=== PATIENT | male | born 1975 | race Caucasian/White ===

== ENCOUNTER 2016-11-14 05:59 | Day surgery (SDC) | payer MEDICARE, OTHER ==
[~2016-11-14] VITALS: Ht 175.3 cm; Wt 90.9 kg
[2016-11-14] VITALS (15 sets, daily range): BP systolic 112–156; BP diastolic 66–93; PULSE 83–118; RESP 12–25; O2SAT 93–99
[2016-11-14] MEDS: Lactated Ringer's 1,000 ML IV SCH ×3 (05:00→07:54)
[~2016-11-14 05:59] MED LIST: AMT25T PO; CINA90TA PO; CITA40TA13 PO; EMLA CREAM TP; FLUT9.9S NS; HUMALOG SQ; LORA2TAB PO; METH750T3 PO; ONDA4TAB6 PO; POLY17PO6 PO; QUET25TA73 PO; SEVE800T7 PO
[2016-11-14] MEDS ORDERED: Neostigmine 1 mg/mL 5 mL Inj ONE (06:00)
[2016-11-14] MEDS ORDERED: 0.9% Sodium Chloride 500 mL Bag ONE (06:00)
[2016-11-14] MEDS ORDERED: fentaNYL-PF 50 mCg/mL 2 mL Inj ONE (06:00)
[2016-11-14] MEDS ORDERED: MetoCLOpramide 5 mg/mL 2 mL Inj ONE (06:00)
[2016-11-14] MEDS ORDERED: Propofol 10,000 mCg/mL 20 mL Inj ONE (06:00)
[2016-11-14] MEDS ORDERED: Glycopyrrolate 0.2 mg/mL 5 mL Inj ONE (06:00)
[2016-11-14] MEDS ORDERED: EPHEDrine/NS 5 mg/mL 5 mL Syringe ONE (06:00)
[2016-11-14] MEDS ORDERED: Phenylephrine/NS 100 mCg/mL 10 mL Syringe IVPUSH ONE (06:00)
[2016-11-14] MEDS ORDERED: Phenylephrine 10,000 mCg/mL Inj ONE (06:00)
[2016-11-14] MEDS ORDERED: Remifentanil 1 mg/3 mL Inj ONE (06:00)
[2016-11-14] MEDS ORDERED: Cisatracurium 2,000 mCg/mL 10 mL Inj ONE (06:00)
[2016-11-14] MEDS ORDERED: 0.9% Sodium Chloride 500 ML IV ONE ×2 (07:54→09:13)
[2016-11-14] MEDS ORDERED: Bupivacaine-MPF 0.5% W/EPI 30 mL Inj INFILTRATE ONE (08:40)
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
[2016-11-14] MEDS ORDERED: Calcium GLUCO 10% (mEq) Inj 9.3 MEQ in Dextrose 5% 100 ML IV ONE (11:00)
[2016-11-14] MEDS ORDERED: Ondansetron 2 mg/mL 2 mL Inj IVPUSH PRN ×2 (11:00→11:05)
[2016-11-14] MEDS ORDERED: MetoCLOpramide 5 mg/mL 2 mL Inj IVPUSH PRN (11:00)
[2016-11-14] MEDS ORDERED: HYDROcodone-APAP 5-325 mg Tablet PO PRN (11:00)
[2016-11-14] MEDS ORDERED: 0.9% Sodium Chloride 250 ML IV PRN (11:03)
[2016-11-14] MEDS ORDERED: hydrALAZINE 20 mg/mL Inj IVPUSH PRN (11:05)
[2016-11-14] MEDS ORDERED: fentaNYL-PF 50 mCg/mL 2 mL Inj IVPUSH PRN (11:05)
[2016-11-14] MEDS ORDERED: Phenylephrine 10,000 mCg/mL Inj IVPUSH PRN (11:05)
[2016-11-14] MEDS ORDERED: EPHEDrine Sulfate 50 mg/mL Inj IVPUSH PRN (11:05)
[2016-11-14] MEDS ORDERED: Atropine 0.4 mg/mL Inj IVPUSH PRN (11:05)
--- NOTE | 2016-11-14 11:34 | OP ---
[address] [address] OPERATIVE REPORT PATIENT: ANNALISA TEMPLETON : 1975 MR#: [id number] ADMIT: 11/14/2016 JOB ID: [id number] DATE OF SURGERY: 11/14/2016 ANESTHESIA: General. PREOPERATIVE DIAGNOSIS(ES): Poorly controlled secondary hyperparathyroidism. POSTOPERATIVE DIAGNOSIS(ES): Poorly controlled secondary hyperparathyroidism. OPERATIVE PROCEDURE: Four gland parathyroidectomy with reimplantation. SURGEON: Dr. Reed Barone. RN FACULTY: Og Hopson MD (the energy assistant was required for the safe and timely completion of the case) as well as DELROY Shen and Di Cooney PA-C. COMPLICATIONS: None. ESTIMATED BLOOD LOSS: Minimal. CONDITION: Satisfactory. SPECIMENS: 1. Right inferior parathyroid adenoma. 2. Right superior parathyroid adenoma. 3. Left inferior parathyroid adenoma. 4. Left superior parathyroid adenoma. FINDINGS: Four enlarged parathyroid adenomas were identified. The right inferior was approximately 1650 mg in size. 50 mg of this was reimplanted in the left sternocleidomastoid. The right superior parathyroid was approximately 900 mg. The left inferior parathyroid was approximately 910 mg. The left superior parathyroid was approximately 1000 mg. INDICATIONS: The patient is a 41-year-old man with a history of type 1 diabetes and end-stage renal disease on hemodialysis who has a struggle with secondary hyperparathyroidism. He has had PTH levels over 1000 in spite of maximal medical therapy. He was referred for four gland exploration. OPERATIVE TECHNIQUE: The patient was taken into the operating room and placed in the supine position. General anesthesia was administered. The neck was prepped and draped in a standard surgical fashion. A procedural pause was performed. A 5 cm cervical incision was then made after injecting local anesthetic, and dissection carried down through skin and subcutaneous tissue. The platysma was transected and superior and inferior subplatysmal flaps were then raised. The midline fascia was then incised and the right strap muscles was sequentially elevated. Dissection was begun and a right inferior parathyroid adenoma was easily identified. This was carefully dissected free. The right recurrent laryngeal nerve was easily identified immediately deep to this. Deep to the nerve, a right superior adenoma was easily identified, and again, carefully dissected free using combination of blunt dissection and bipolar electrocautery taking care to stay well away from the nerve. After removal of the specimens, the attention was turned to the left side. The left strap muscles were sequentially elevated. Dissection was begun and again a left inferior adenoma was easily identified and carefully dissected free. I looked for the nerve but it was not easily identified. The left inferior pole vessels were taken using energy device and then upon elevating the left inferior lobe, there was a left superior adenoma that was again easily identified and then circumferentially dissected free. The measurements were as above. Intraoperative PTH had been checked immediately prior to removing the first adenoma. After removing the third adenoma, it had dropped down to just over 100. Frozen specimen was also obtained and confirmed that all the adenomas indeed consist of parathyroid tissue. I took off the approximately 50 mg of the right inferior adenoma and mashed this and I created a slurry with some saline. The strap muscles were then reapproximated using running 3-0 Vicryl. I dissected out the left sternocleidomastoid, created a little pocket and put the slurry into this. This was closed with a 3-0 Prolene suture. I also left a metallic clip there for easy radiographic identification. The platysma was then reapproximated with interrupted 3-0 Vicryl. Skin was closed using 4-0 Monocryl. Dermabond was applied. The entire procedure was well tolerated without apparent complication. LORIE
--- NOTE | 2016-11-14 12:00 | PCM.ANEP1 ---
Post Anesthesia Phase 1 PACU Phase 1 Assessment Vital Signs Vital Signs Date Time Temp Pulse Resp B/P Pulse Ox O2 Delivery O2 Flow Rate FiO2 11/14/16 11:45 89 17 112/68 96 Nasal Cannula 2 11/14/16 11:30 90 14 115/67 95 Nasal Cannula 2 11/14/16 11:20 98 22 122/66 93 Room Air 11/14/16 11:10 100 15 122/75 94 Room Air 11/14/16 11:05 110 20 156/93 97 Room Air 11/14/16 11:00 99 25 137/76 99 Simple Mask 8 11/14/16 10:55 36.2 118 13 145/76 99 Simple Mask 8 11/14/16 06:31 36.2 104 12 121/76 93 Room Air Anesthetic Administered: GA Level of Alertness: Awake, talking [place]'s with Equal Strength: Yes Pain: No Nausea or Vomiting: No Oxygen Delivery: Nasal Cannula Lungs: Normal Air Movement Dermatome Level: Full Sensation Devante Davenport MD Nov 14, 2016 12:00
--- NOTE | 2016-11-14 12:01 | PCM.ANEP2 ---
Post Anesthesia Evaluation ASA/CMS Post Anesthesia VS in Patient's Normal Range?: Yes Resp Stable; Airway Patent?: Yes CV Function & Hydration Stable: Yes Mental Status Recovered?: Yes Pain control Satisfactory?: Yes N/V Control Satisfactory?: Yes Devante Davenport MD Nov 14, 2016 12:01
--- NOTE | 2016-11-14 13:35 | NUR ---
Post Op Pt arrived to [facility] rm 1024 at approx 1330. Rec'd report from JENNIFER Pierson in PACU. Pt arrived via gurney and was able to scoot himself over to the hospital bed. Incision well approx. Pt oriented to room and call light. Reports no nausea and pain 04/07. Insulin pump running at personal settings. Addendum: 11/14/16 at 1428 by IJEOMA CLIFFORD RN Pt placed on [place] alarm due to Post op status, pt expressed being upset about that "I know how to disassemble those." Advised pt it was policy and that post ops are higher falls risks. [place] on and call light w/in reach Addendum: 11/14/16 at 1704 by IJEOMA CLIFFORD RN Pt questioned this JENNIFER again about alarm, States I will use my call light if I feel I need help, As I was speaking he took [place] alarm out from under his sheets.
[2016-11-14] MEDS ORDERED: oxyCODONE-Acetamin 5-325 mg Tablet PO PRN ×2 (14:20→18:16)
[2016-11-14] MEDS: Insulin Human REGular 300 Unit/3 mL Inj SUBQ SCH ×2 (14:30→20:30)
[2016-11-14] MEDS ORDERED: Calcium Carbonate 1250 mg/5 mL Suspension PO SCH ×2 (17:30→21:00)
[2016-11-14] MEDS ORDERED: Polyethylene Glycol (PEG) 17 Gm Powder PO PRN (17:55)
[2016-11-14] MEDS ORDERED: INSULIN LISPRO SQ SCH (17:55)
--- NOTE | 2016-11-14 18:34 | NUR ---
Pt observed taking home meds Entered room at approx 1825 to administer Percocet. Pt had lunch bag full of medication bottles and was taking some. Asked pt what he was taking, stated his Renvela. Advised pt of hospital policy, pt states that he would let us know what he was taking. Pt advised pharmacist would be in to talk with him. Spoke to pharmacist, currently she is in talking with him. dry dip worker aware. Addendum: 11/14/16 at 1905 by IJEOMA CLIFFORD RN Pharmacist arrived to discuss w/ patient hospital policy. Pt wanted med rec done to make sure we had everything correct in the system. Pharmacist discussed conversation w/ this RN. I entered room to complete med rec, we had up to date version, started to fill out security bag for pt's medication and he refused to have meds placed in pharmacy safe. Advised pt of policy again, orientee RN also explained policy. Pt states that he will leave before he lets us put his meds in the safe as he doesnt trust that he will get them when he needs them, again explained policy and liability, pt wishes to speak to the doctor. Paged Surgeon. Meds currently in patient's room.
--- NOTE | 2016-11-14 21:15 | PCM.DISURG ---
Surgical Discharge Instruction Date of Service Nov 14, 2016 Dates of Hospitalization Date of Hospital Admission Providers Admitting Physician: Primary Care Physician: Ayush Reis MD Attending Physician: Reed Barone MD Discharge Diagnosis Discharge Diagnosis S/P Parathyroidectomy Diet Discharge Diet: Diabetic, Renal Diet Activity Discharge Activity-General: No restrictions, No driving while taking narcotic Dressing and Incisional Care Hygiene: May shower Follow Up Plan Follow Up Plan Call my clinic first thing tomorrow morning to arrange for a calcium level check Call your provider for: Other (numbness or tingling around the mouth, muscle cramps or spasms) Additional Information Additional Information If any muscle cramps etc. take 4 tums (500mg calcium carbonate) and go to the Emergency room Reed Barone MD Nov 14, 2016 21:15
[2016-11-14] MEDS ORDERED: CALC500T53 PO (21:17)
--- NOTE | 2016-11-14 21:29 | NUR ---
Discharge Pt. originally wanted to leave AMA. Abisai MD paged. Abisai MD advised pt. to wait for calcium levels to come back before leaving. Calcium levels came back. Pt. asked to leave. filled out discharge paperwork. Discharge instructions were given to pt. Pt. left with all belongings at 2125. Pt.'s IV was intact and patent.
--- NOTE | 2016-11-15 00:04 | DIS ---
[address] [address] DISCHARGE SUMMARY PATIENT: ANNALISA TEMPLETON : 1975 MR#: [id number] ADMIT: 11/14/2016 JOB ID: [id number] DIS: 11/14/2016 ADMISSION DIAGNOSIS: Secondary hyperparathyroidism. DISCHARGE DIAGNOSIS: Secondary hyperparathyroidism. OPERATIVE PROCEDURE: Four gland parathyroidectomy with reimplantation. HISTORY: The patient is a 41-year-old man with type 1 diabetes and end-stage renal disease on hemodialysis. He had developed secondary hyperparathyroidism refractory to maximum medical therapy; and therefore, was referred for four gland parathyroidectomy with reimplantation. On date of admission he was taken to the operating room and the above-mentioned procedure performed without complication. His preoperative calcium level was 8.8, his preoperative PTH was 593; in the PACU his calcium level was 8.4 and his PTH was 55. He received a single dose of IV calcium and the plan was to start oral calcium. Calcium levels were rechecked in the afternoon and were in the target range of 8 to 9 mg/dL. I was contacted by the conservation agent surgeon that evening as the patient was wanting to go home. Attempts at convincing him to stay were proving futile; and therefore, I was asked to give him a call. I discussed with him the indications for staying, primarily to make sure that his calcium levels were okay. Because he was going to leave anyway, I agreed to recheck his calcium level and then let him go home if it was within the target range of 8 to 9 mg/dL. The recheck was 8.3. He was given instructions regarding the need to take calcium carbonate 1 g four times a day. He was also given explicit instructions regarding warning signs and symptoms of hypocalcemia, specifically perioral numbness and tingling, muscle cramps and spasms. He was instructed that if he should experience any of those symptoms he should immediately take 2 g of calcium carbonate and then go to the emergency department. He understood that I was less than enthusiastic about him going home, but I did feel it was safe given that his calciums had remained relatively stable, and I preferred to have him leave with appropriate instructions and a plan for follow up rather than just leave AMA. FOLLOWUP PLANS: The patient was given instructions to call my clinic first thing in the morning so we can recheck his calcium level. DISCHARGE MEDICATIONS: Patient was sent home with no new discharge medications. He was instructed to stop Sensipar. He was also instructed to take Tums (calcium carbonate 500 mg) two tabs four times a day. He was instructed to take a dose prior to bed tonight. He will receive prescriptions for analgesia and Vit D tomorrow in my clinic. LORIE
[2016-11-15] MEDS ORDERED: Fluticasone 0.05% 15 Spray/2 Gm 16 Gm Nasal Spray NASAL SCH (08:30)
== END 2016-11-14 21:50 | disposition home or self-care (01) ==
LOC: SAS 05:59 → OSC 13:12 → SAS 21:50
PROVIDERS: ATTEND General Practice
DX: N25.81 Secondary hyperparathyroidism of renal origin (principal); E10.21 Type 1 diabetes mellitus with diabetic nephropathy; N18.6 End stage renal disease; M79.7 Fibromyalgia; G47.33 Obstructive sleep apnea (adult) (pediatric); Z99.2 Dependence on renal dialysis; Z79.4 Long term (current) use of insulin
CPT/HCPCS: 36415; 60500; 82310; 83036; 83970; 84132; J1815; J2370; J2405; J2710; J2765; J3010; J7030; J7040; J7120

== ENCOUNTER 2017-04-24 16:18 | Emergency (ER) | payer MEDICARE, OTHER ==
[~2017-04-24] VITALS: Ht 175.3 cm; Wt 91.5 kg
[~2017-04-24 16:18] MED LIST changes: +CALC500T53 PO; -CINA90TA PO
[2017-04-24 16:45] VITALS: BP 139/88; PULSE 82; RESP 16; O2SAT 99
--- NOTE | 2017-04-24 19:17 | ED.REPORT ---
HPI-Dental/Mouth Prob Date of Service Apr 24, 2017 ED Provider: Rick Lockhart MD History of Present Illness: I Nursing Notes Stated Complaint: SEVERE TOOTHACHE Chief Complaint: Dental Nursing Notes Reviewed: Yes ([employer], Passenger Baggage Xpresssnot reconciled) Allergies: Coded Allergies: ibuprofen (Verified Adverse Reaction, Severe, swelling, 11/12/16) Scheduled ([Emla Cream]) 1 APPLIC TP BEFORE DIALYSIS ([Humalog]) 70 UNITS SQ VIA INSULIN PUMP Amitriptyline (Amitriptyline) 25 Mg Tab 25 MG PO HS Calcium Carbonate (Calcium Carbonate) 200 Mg Tab.chew 1,000 MG PO QID Citalopram (Citalopram) 40 Mg Tablet 40 MG PO DAILY Fluticasone Propionate (Flonase Allergy Relief) 50 Mcg/Actuation [place].susp 9.9 ML NS DAILY Quetiapine Fumarate (Quetiapine Fumarate) 25 Mg Tablet 25 MG PO HS Sevelamer Carbonate (Renvela) 800 Mg Tablet 4,000 MG PO TIDWM TAKES 3 800MG (2400MG) TID AC; TAKES 2 800MG (1600MG) W/ SNACKS Scheduled PRN Lorazepam (Lorazepam) 2 Mg Tablet 8 MG PO 3x weekly PRN PRN For Insomnia USES PRIOR TO DIALYSIS Methocarbamol (Methocarbamol) 750 Mg Tablet 750 MG PO TID PRN PRN For Spasm Ondansetron (Zofran) 4 Mg Tablet 4-8 MG PO Q8H PRN PRN For Nausea Polyethylene Glycol 3350 (Miralax) 17 Gm Powd.pack 17 GM PO TID PRN PRN PRN General Time Seen by MD: 19:08 Chief Complaint Other Past Medical History Past Medical History Chronic renal failure on hemodialysis Secondary hyperparathyroidism Diabetes, type I on an insulin pump Hypertension History of obstructive sleep apnea on CPAP History of kidney stones History of GERD History of fibromyalgia History of anxiety Past Surgical History parathyroidectomy with reimplantation October 2016 Umbilical hernia repair Tooth extraction Cataracts Right ankle repair Left arm AV fistula Appendectomy Reports: Cataract surgery Smoking History Former Smoker Social History Drug Use: Denies drug use Physical Exam Initial Vital Signs Vital Signs (First) Date Time Temp Pulse Resp B/P Pulse Ox O2 Delivery O2 Flow Rate FiO2 04/24/17 16:45 37.0 82 16 139/88 99 Initial VS: Reviewed, Vital signs normal Re-Eval/Medical Decision Source of Hx: Old records Discharge & Departure Referrals: Ayush Reis MD (PCP) Rick Lockhart MD Apr 24, 2017 19:16
== END 2017-04-24 19:33 | disposition left against medical advice (07) ==
LOC: SED 16:18
DX: K08.89 Other specified disorders of teeth and supporting structures (principal); E11.9 Type 2 diabetes mellitus without complications; I12.9 Hypertensive chronic kidney disease with stage 1 through stage 4 chronic kidney disease, or unspecified chronic kidney disease; N18.9 Chronic kidney disease, unspecified; Z99.2 Dependence on renal dialysis; Z90.89 Acquired absence of other organs; Z87.891 Personal history of nicotine dependence

== ENCOUNTER 2017-05-24 23:55 | Emergency (ER) | payer MEDICARE, OTHER ==
[~2017-05-24] VITALS: Ht 175.3 cm; Wt 95.1 kg
[2017-05-25 00:02] VITALS: BP 147/92; PULSE 82; RESP 16; O2SAT 99
--- NOTE | 2017-05-25 00:15 | ED.REPORT ---
HPI-Extremity Problem Upper Date of Service May 25, 2017 ED Provider: Alberto Santiago DO Pt is a 42 y/o male with a history of DM and HTN who presents to the ED c/o a laceration on his L thumb onset this evening. He states he was cut by a new chisel. He denies numbness/tingling, nausea, vomiting, diarrhea, SOB, weakness, cough, headache, or wrist pain. Nursing Notes Stated Complaint: STITCHES- LACERATION ON THUMB Chief Complaint: Laceration Nursing Notes Reviewed: Yes Allergies: Coded Allergies: ibuprofen (Verified Adverse Reaction, Severe, swelling, 11/12/16) Scheduled ([Emla Cream]) 1 APPLIC TP BEFORE DIALYSIS ([Humalog]) 70 UNITS SQ VIA INSULIN PUMP Amitriptyline (Amitriptyline) 25 Mg Tab 25 MG PO HS Calcium Carbonate (Calcium Carbonate) 200 Mg Tab.chew 1,000 MG PO QID Citalopram (Citalopram) 40 Mg Tablet 40 MG PO DAILY Fluticasone Propionate (Flonase Allergy Relief) 50 Mcg/Actuation [place].susp 9.9 ML NS DAILY Quetiapine Fumarate (Quetiapine Fumarate) 25 Mg Tablet 25 MG PO HS Sevelamer Carbonate (Renvela) 800 Mg Tablet 4,000 MG PO TIDWM TAKES 3 800MG (2400MG) TID AC; TAKES 2 800MG (1600MG) W/ SNACKS Scheduled PRN Lorazepam (Lorazepam) 2 Mg Tablet 8 MG PO 3x weekly PRN PRN For Insomnia USES PRIOR TO DIALYSIS Methocarbamol (Methocarbamol) 750 Mg Tablet 750 MG PO TID PRN PRN For Spasm Ondansetron (Zofran) 4 Mg Tablet 4-8 MG PO Q8H PRN PRN For Nausea Polyethylene Glycol 3350 (Miralax) 17 Gm Powd.pack 17 GM PO TID PRN PRN PRN General Time Seen by MD: 00:15 Chief Complaint Other (Laceration over L thumb) Hx Obtained From: Patient Arrived By: Walk-in Onset Occurred: 1 - 4 hours ago Quality: Painful Severity: Current: Mild Severity: Maximum: Moderate Recent Healthcare: No recent hospitalization, Recent doctor visit Similar Sx Previous: No Past Medical History Past Medical History Chronic renal failure on hemodialysis Secondary hyperparathyroidism Diabetes, type I on an insulin pump Hypertension History of obstructive sleep apnea on CPAP History of kidney stones History of GERD History of fibromyalgia History of anxiety Past Surgical History parathyroidectomy with reimplantation October 2016 Umbilical hernia repair Tooth extraction Cataracts Right ankle repair Left arm AV fistula Appendectomy Reports: Cataract surgery Smoking History Former Smoker Social History Drug Use: Denies drug use Review of Systems Laceration over L thumb No wrist pain Neurologic: Denies: Headache, Numbness, Weakness Complete sys rev & neg: except as marked. Respiratory: Denies: Non-productive cough, Prod cough, clear, Shortness of breath GI: Denies: Diarrhea, Nausea, Vomiting Physical Exam Initial Vital Signs Vital Signs (First) Date Time Temp Pulse Resp B/P Pulse Ox O2 Delivery O2 Flow Rate FiO2 05/25/17 00:02 36.8 82 16 147/92 99 Room Air Initial VS: Reviewed Head / Eyes: Atraumatic, Normocephalic Neck: Supple, Full range of motion Skin: Warm, Dry, No cyanosis Neurologic: Alert, Oriented, Nonfocal Psychiatric: Mood/affect normal, Behavior normal, Normal thought content General/Constitutional: Awake, Alert Respiratory / Chest: Atraumatic, Breath sounds NL, Breath sounds = bilat, No respiratory distress Cardiovascular: Heart rate NL, Regular rhythm, Heart sounds NL Wrist / Hand: Neurologic intact, Vascular intact Left Hand: Positive: Erythema present, Ganglion cyst present, Joint effusion present, ROM reduced, Tenderness present..., Warmth present 3 mm skin tear over L thumb Re-Eval/Medical Decision Med Decision/Clinical Course Wound was cleaned and prepped. Wound was irrigated and dressed with Steri- Strips and a sterile tube gauze. And a bicarbonate had been applied. He has diabetes with poor wound healing. He will be on a course of Keflex. The wound was superficial and did not involve the tendons. I do not feel that the wound needed to be sutured. Wound check in 48 hours. Source of Hx: Old records Re-Evaluation/Progress #1: Time of Eval: 00:15 Re-Evaluation/Progress Note: Discussed plan for discharge. Patient understands and agrees with plan. F/U instructions and RTER warnings given. All questions addressed at this time. Re-Evaluation/Progress #2: Time of Eval: 01:40 Re-Evaluation/Progress Note: Pt had a question about medication with dialysis. All questions addressed. Counseled Regarding: Diagnosis, Lab results, Need for follow-up, When/why to return to ED Discharge & Departure Impression: Primary Impression: Laceration Disposition: Home Patient Instructions: Finger Laceration (GEN), Laceration (DC) Additional Instructions: Keep the wound dressed in a tube gauze for 2 days. You may then remove the tube gauze. Have a wound check in 48-72 hours. You can do this at her neck dialysis as well. Keflex twice daily for 5 days. Take after dialysis. Watch for signs infection:, redness swelling or discharge. Be seen right away if any these occur. Referrals: Ayush Reis MD (PCP) Scribe Attestation Portions of this note were transcribed by Saloni Belcher. I, Dr. Santiago, personally performed the history, physical exam and medical decision-making; I reviewed and confirmed the accuracy of the information in the transcribed note. copies to: Ayush Reis MD, Todd P DO May 25, 2017 00:15 Saloni Belcher May 25, 2017 02:13
[2017-05-25] MEDS ORDERED: TdaP Vaccine 0.5 mL Inj IM ONE (02:15)
== END 2017-05-25 01:45 | disposition home or self-care (01) ==
LOC: SED 23:55
DX: S61.012A Laceration without foreign body of left thumb without damage to nail, initial encounter (principal); W27.0XXA Contact with workbench tool, initial encounter; Y93.9 Activity, unspecified; Y92.9 Unspecified place or not applicable; Y99.9 Unspecified external cause status; I13.10 Hypertensive heart and chronic kidney disease without heart failure, with stage 1 through stage 4 chronic kidney disease, or unspecified chronic kidney disease; N18.9 Chronic kidney disease, unspecified; K21.9 Gastro-esophageal reflux disease without esophagitis; E10.22 Type 1 diabetes mellitus with diabetic chronic kidney disease; Z87.891 Personal history of nicotine dependence; Z88.6 Allergy status to analgesic agent; Z79.4 Long term (current) use of insulin